=== PATIENT | male | born 2000 | race Caucasian/White ===

== ENCOUNTER 2019-08-14 23:45 | Emergency (ER) | payer OTHER ==
--- NOTE | 2019-08-15 07:53 | RAD ---
EXAM: Portable chest PROVIDED CLINICAL HISTORY: Dyspnea COMPARISON: None FINDINGS: Dextrocardia versus incorrect labeling of the film. Heart and mediastinum appear otherwise normal.. N o focal consolidation, pleural fluid or pneumothorax evident. IMPRESSION: No evidence for an acute cardiopulmonary process.
== END 2019-08-15 01:37 | disposition home or self-care (01) ==
LOC: ERS 23:45
DX: U07.1 COVID-19 (principal); R06.02 Shortness of breath
CPT/HCPCS: 71045